=== PATIENT | female | born 1950 ===

== ENCOUNTER 2021-10-25 16:47 | Inpatient (IN) ==
[2021-10-25] MEDS ORDERED: Albuterol 2.5mg/3 ml (0.083%) NEB.SOLN INH PRN (22:27)
[2021-10-25] MEDS ORDERED: Albuterol/Ipratropium NEB.SOL (2.5/0.5 MG) 3 ML NEB.SOLN INH PRN (22:27)
[2021-10-25] MEDS ORDERED: Dextrose 50% Syringe 50 ml 25 GM/50 ML SYRINGE IV PUSH PRN (22:28)
[2021-10-26] MEDS: Albuterol/Ipratropium NEB.SOL (2.5/0.5 MG) 3 ML NEB.SOLN INH SCH ×4 (03:15→19:26)
[2021-10-26 05:49] LABS: ABS Lymphocytes 0.2 10^3/ul (1.0-4.8); ABS Monocytes 0.2 10^3/ul (0-0.8); ABS Neutrophils 1.8 10^3/ul (1.5-7.7); Eosinophil % 0.1 %; Hematocrit 34 % (35-47); Hemoglobin 11.2 g/dL (12.0-16.0); Lymphocyte % 8.5 %; Mean Corpuscular HGB Conc 33 g/dL (31-36); Mean Corpuscular Hemoglobin 32 pg (27-31); Mean Corpuscular Volume 96 fL (80-97); Red Blood Count 3.54 10^6 /uL (3.70-4.87); Red Cell Distribution Width 15 % (10-15); White Blood Count 2.2 10^3/uL (3.5-10.8)
[2021-10-26 06:07] LABS: Albumin 3.3 g/dL (3.2-5.2); Albumin/Globulin Ratio 1.3 (1-3); Calcium 8.7 mg/dL (8.6-10.3); Direct Bilirubin 0.2 mg/dL (0.03-0.18); Globulin 2.6 g/dL (2-4); Indirect Bilirubin 0.4 mg/dL (0.3-1.0); Potassium 4.9 mmol/L (3.5-5.0); Total Bilirubin 0.6 mg/dL (0.2-1.0); Total Protein 5.9 g/dL (6.4-8.9); eGFR CKD-EPI 75.6 (>60)
[2021-10-26 06:40] LABS: Mean Platelet Volume 8.5 fL (7.4-10.4); Platelet Count 46 10^3/uL (150-450)
[2021-10-26] MEDS: Mometasone/Formoter 200/5 MDI INH SCH ×2 (07:41→19:27)
[2021-10-26] MEDS ORDERED: SPIRIVA Respimat (tiotropium) 2.5 mcg/inh Inhaler INH SCH (09:00)
[2021-10-26] MEDS: Polyethylene Glycol 3350 17 GM PACKET PO SCH (09:32)
[2021-10-26] MEDS: URSODIOL 500 MG PO SCH ×2 (09:33→21:21)
[2021-10-26] MEDS ORDERED: Insulin GLARGINE 100 un/ml 10 ml VIAL SUBCUT SCH (21:00)
[2021-10-26] MEDS: CMCS: Simvastatin 10 mg TAB (NF) PO SCH (21:32)
[2021-10-27] MEDS: Albuterol/Ipratropium NEB.SOL (2.5/0.5 MG) 3 ML NEB.SOLN INH SCH ×5 (00:43→23:23)
[2021-10-27 06:50] LABS: ABS Lymphocytes 0.3 10^3/ul (1.0-4.8); ABS Monocytes 0.3 10^3/ul (0-0.8); ABS Neutrophils 2.1 10^3/ul (1.5-7.7); Eosinophil % 0.7 %; Hematocrit 35 % (35-47); Hemoglobin 11.9 g/dL (12.0-16.0); Lymphocyte % 9.8 %; Mean Corpuscular HGB Conc 34 g/dL (31-36); Mean Corpuscular Hemoglobin 33 pg (27-31); Mean Corpuscular Volume 96 fL (80-97); Mean Platelet Volume 9.4 fL (7.4-10.4); Platelet Count 54 10^3/uL (150-450); Red Blood Count 3.64 10^6 /uL (3.70-4.87); Red Cell Distribution Width 15 % (10-15); White Blood Count 2.6 10^3/uL (3.5-10.8)
[2021-10-27 07:01] LABS: Albumin 3.4 g/dL (3.2-5.2); Albumin/Globulin Ratio 1.3 (1-3); C Reactive Protein 13.87 mg/L (<8.01); Calcium 9.4 mg/dL (8.6-10.3); Globulin 2.6 g/dL (2-4); Magnesium 2.2 mg/dL (1.9-2.7); Potassium 4.7 mmol/L (3.5-5.0); Total Bilirubin 0.5 mg/dL (0.2-1.0); eGFR CKD-EPI 67.8 (>60)
[2021-10-27] MEDS: Mometasone/Formoter 200/5 MDI INH SCH ×2 (07:34→19:48)
[2021-10-27] MEDS: URSODIOL 500 MG PO SCH ×2 (08:40→21:19)
[2021-10-27] MEDS: Cefepime 2 GM in Dextrose 2 GM/50 ML BAG IV SCH (17:42)
[2021-10-27] MEDS ORDERED: Insulin GLARGINE 100 un/ml 10 ml VIAL SUBCUT SCH (21:00)
[2021-10-27] MEDS: CMCS: Simvastatin 10 mg TAB (NF) PO SCH (21:19)
[2021-10-28] MEDS: Albuterol/Ipratropium NEB.SOL (2.5/0.5 MG) 3 ML NEB.SOLN INH SCH ×6 (03:27→23:46)
[2021-10-28] MEDS: Cefepime 2 GM in Dextrose 2 GM/50 ML BAG IV SCH ×2 (04:36→16:50)
[2021-10-28 06:27] LABS: ABS Lymphocytes 0.3 10^3/ul (1.0-4.8); ABS Monocytes 0.3 10^3/ul (0-0.8); ABS Neutrophils 1.8 10^3/ul (1.5-7.7); Hematocrit 36 % (35-47); Hemoglobin 12.1 g/dL (12.0-16.0); Lymphocyte % 12.7 %; Mean Corpuscular HGB Conc 34 g/dL (31-36); Mean Corpuscular Hemoglobin 32 pg (27-31); Mean Corpuscular Volume 96 fL (80-97); Mean Platelet Volume 9.2 fL (7.4-10.4); Nucleated Red Blood Cells % 0.1; Platelet Count 52 10^3/uL (150-450); Red Blood Count 3.74 10^6 /uL (3.70-4.87); Red Cell Distribution Width 15 % (10-15); White Blood Count 2.5 10^3/uL (3.5-10.8)
[2021-10-28 06:44] LABS: Calcium 9.4 mg/dL (8.6-10.3); Potassium 4.4 mmol/L (3.5-5.0); eGFR CKD-EPI 70.6 (>60)
[2021-10-28] MEDS: Mometasone/Formoter 200/5 MDI INH SCH ×2 (07:40→19:52)
[2021-10-28] MEDS: Polyethylene Glycol 3350 17 GM PACKET PO SCH (08:32)
[2021-10-28] MEDS: URSODIOL 500 MG PO SCH ×2 (08:39→20:29)
[2021-10-28] MEDS: CMCS: Simvastatin 10 mg TAB (NF) PO SCH (20:33)
[2021-10-28] MEDS ORDERED: Insulin GLARGINE 100 un/ml 10 ml VIAL SUBCUT SCH (21:00)
[2021-10-29] MEDS: Albuterol/Ipratropium NEB.SOL (2.5/0.5 MG) 3 ML NEB.SOLN INH SCH ×5 (03:25→19:59)
[2021-10-29] MEDS: Cefepime 2 GM in Dextrose 2 GM/50 ML BAG IV SCH (04:15)
[2021-10-29 06:25] LABS: ABS Lymphocytes 0.4 10^3/ul (1.0-4.8); ABS Monocytes 0.3 10^3/ul (0-0.8); ABS Neutrophils 1.7 10^3/ul (1.5-7.7); Eosinophil % 1.3 %; Hematocrit 36 % (35-47); Hemoglobin 12.1 g/dL (12.0-16.0); Mean Corpuscular HGB Conc 33 g/dL (31-36); Mean Corpuscular Hemoglobin 32 pg (27-31); Mean Corpuscular Volume 95 fL (80-97); Mean Platelet Volume 8.9 fL (7.4-10.4); Nucleated Red Blood Cells % 0.1; Platelet Count 50 10^3/uL (150-450); Red Cell Distribution Width 15 % (10-15); White Blood Count 2.5 10^3/uL (3.5-10.8)
[2021-10-29 06:42] LABS: Calcium 9.6 mg/dL (8.6-10.3); Potassium 4.4 mmol/L (3.5-5.0); eGFR CKD-EPI 71.5 (>60)
[2021-10-29] MEDS: Mometasone/Formoter 200/5 MDI INH SCH ×2 (07:54→19:55)
[2021-10-29 08:58] LABS: Venous Bicarbonate HCO3 30.7 mmol/L (24-28)
[2021-10-29] MEDS: URSODIOL 500 MG PO SCH (09:57)
[2021-10-29 12:37] VITALS: BP 133/76
== END 2021-10-29 17:40 | disposition home or self-care (01) | DRG 190 ==
LOC: SUATTDRO 21:38 → MED 21:38
PROVIDERS: ADMIT Hospitalist; ATTEND Hospitalist